=== PATIENT | male | born 1945 | race Caucasian/White ===

== ENCOUNTER 2016-07-24 16:22 | Emergency (ER) | payer OTHER ==
[2016-07-24] MEDS ORDERED: LIDOCAINE HCL 2% 20 ML VIAL ONE (16:48)
[2016-07-24] MEDS ORDERED: BACITRACIN 1 APP/PKT PKT TOPICAL ONE (17:15)
--- NOTE | 2016-07-24 17:17 | ER PHYSICIAN DOCUMENTATION ---
Physician Documentation [facility] Name:Nico Frederick Age:71 yrs Sex:Male :1945 Arrival Date:07/24/2016 Time:16:22 Bed1 Private MD: Baldo Bhagat Disposition: 07/24/16 17:12 Discharged to Home/Self Care. Impression: Finger Laceration. - Condition is Good. - Discharge Instructions: FINGER LACERATION - LACERATION, Hand. - Medical Reconciliation form form. - Follow up: Emergency Department; When: 1 week; Reason: Staple/Suture removal. - Problem is new. - Symptoms have improved. HPI: 07/24 17:13 This 71 yrs old Male presents to ER via Private Vehicle with complaints of jm Laceration To Hand - RIGHT PINKY. 17:13 The patient has a laceration related to: doing carpentry, from a power saw. The jm laceration(s) is(are) located on the palmar aspect of distal phalanx of right little finger. Onset: The symptom(s)/episode began/occurred just prior to arrival. Associated signs and symptoms: Pertinent negatives: deformity, numbness distal to injury. The patient has not experienced similar symptoms in the past. Pt was using a reciprocating saw. . Historical: - Allergies: Erythromycin; - Home Meds: 1. Wellbutrin Oral 2. Tramadol Oral 3. Flomax Oral 4. Ambien Oral - PMHx: OSTEOARTHRITIS; - PSHx: HIP SURGERY; KNEE SURGERY; - Tetanus: < 10 years. - Ebola Screening: : Patient negative for fever greater than or equal to 101.5 degrees Fahrenheit, and additional compatible Ebola Virus Disease symptoms. Patient denies exposure to infectious person. Patient denies travel to an Ebola-affected area in the 21 days before illness onset. No symptoms or risks identified at this time. . - Immunization history: Pneumococcal vaccine is not up to date, Flu Vaccine None. - Social history: Smoking status: Patient states was never smoker of tobacco. Patient uses alcohol only on a social basis. Patient/guardian denies using street drugs, IV drugs, marijuana. ROS: 17:14 Constitutional: Negative for fatigue, fever. jm 17:14 MS/extremity: Positive for laceration. 17:14 Skin: Positive for laceration(s). Exam: 17:16 Musculoskeletal/extremity: Extremities: grossly normal except: noted in the : jm laceration, ROM: intact in all extremities, Circulation is intact in all extremities. Sensation intact. 17:16 Constitutional: The patient appears alert, awake. 17:16 Skin: injury, laceration(s), the wound is approximately 2.5 cm(s), with a depth of .5 cm(s), of the palmar aspect of distal phalanx of right little finger, that can be described as jagged, no rash present. Vital Signs: 16:38 BP 142 / 81; Pulse 65; Resp 16; Temp 98.4; Pulse Ox 95% on R/A; sc1 Laceration: 17:16 Wound Repair of 2.5cm ( 1.0in ) subcutaneous laceration to palmar aspect of distal jm phalanx of right little finger. no nail involvment, but I needed to use the nail to suture down the skin. . Distal neuro/vascular/tendon intact. Anesthesia: Digital block administered with 10 mls of 2% lidocaine. Wound prep: Wound irrigation by nurse. Skin closed with 6 5-0 Ethilon using Interrupted sutures. Dressed with tube gauze. Patient tolerated well. MDM: 16:27 Patient medically screened. 17:21 Differential diagnosis: superficial laceration. Data reviewed: vital signs, nurses hortencia notes, and as a result, I will discharge patient. Counseling: I had a detailed discussion with the patient and/or guardian regarding: the historical points, exam findings, and any diagnostic results supporting the discharge/admit diagnosis. Dispensed Medications: No medications were administered Signatures: Laurie Salcedo RN RN sc1 Baldo Houston MD MD jm
--- NOTE | 2016-07-24 17:17 | ER NURSING DOCUMENTATION ---
Nurse's Notes [facility] Name:Nico Frederick Age:71 yrs Sex:Male :1945 Arrival Date:07/24/2016 Time:16:22 Bed1 Private MD: Diagnosis:Finger Laceration Presentation: 07/24 16:34 Presenting complaint: Patient states: avulsion laceration to right 5th finger on a sc1 power saw. Transition of care: Home. Complicating Factors: There are no complicating factors for this patient. Notified ED Physician of patient's arrival and CC Celso Huang notified. 16:34 Acuity: PONCHO 3 sc1 16:34 Method Of Arrival: Private Vehicle sc1 Triage Assessment: 16:38 General: Appears in no apparent distress, well developed, well nourished, well groomed, sc1 Behavior is cooperative, pleasant. Pain: Complains of pain in palmar aspect of distal phalanx of right little finger and right little fingernail. Historical: - Allergies: Erythromycin; - Home Meds: 1. Wellbutrin Oral 2. Tramadol Oral 3. Flomax Oral 4. Ambien Oral - PMHx: OSTEOARTHRITIS; - PSHx: HIP SURGERY; KNEE SURGERY; - Tetanus: < 10 years. - Ebola Screening: : Patient negative for fever greater than or equal to 101.5 degrees Fahrenheit, and additional compatible Ebola Virus Disease symptoms. Patient denies exposure to infectious person. Patient denies travel to an Ebola-affected area in the 21 days before illness onset. No symptoms or risks identified at this time. . - Immunization history: Pneumococcal vaccine is not up to date, Flu Vaccine None. - Social history: Smoking status: Patient states was never smoker of tobacco. Patient uses alcohol only on a social basis. Patient/guardian denies using street drugs, IV drugs, marijuana. Screenin:39 Infectious Disease Risk None. Abuse screen: Denies threats or abuse. Nutritional sc1 screening: No deficits noted. Assessment: 17:07 Musculoskeletal: Circulation, motion, and sensation intact Capillary refill other R lp pinky laceration. Injury Description: Laceration sustained to dorsal aspect of distal phalanx of right little finger, dorsal aspect of middle phalanx of right little finger, dorsal aspect of proximal phalanx of right little finger and right little fingernail is bleeding moderately, cut from reciprocating saw. Vital Signs: 16:38 BP 142 / 81; Pulse 65; Resp 16; Temp 98.4; Pulse Ox 95% on R/A; sd1 ED Course: 16:27 Patient arrived in ED. nikia 16:27 Baldo Houston MD is Attending Physician. hortencia 16:33 Laurie Salcedo, RN is Primary Nurse. [facility] [place] [facility] [place] Notified ED Physician of patient's arrival and chief complaint. Dr. Houston notified. sd1 Allergy Band Placed Arm band placed on Bed in low position Call Light in Reach HOB Elevated. 16:39 Wound care to laceration located on palmar aspect of distal phalanx of right little sc1 finger and right little fingernail was cleaned with Hibiclens, Patient tolerated well. 16:54 Assist Provider Assist provider with laceration repair on palmar aspect of distal sc1 phalanx of right little finger that was 2.5 cm. or less using sutures. Set up tray. Performed by Baldo Houston MD Dressed with tubegauze Patient tolerated well. 17:09 Valuables Remains with patient Patient has correct armband on for positive lp identification. Bed in low position. Call light in reach. Administered Medications: No medications were administered Outcome: 17:12 Discharge ordered by . hortencia 17:16 [place]charged to [place] [facility] [place] Condition: stable 17:16 Discharge instructions given to patient, Instructed on wound care, Demonstrated understanding of instructions. 17:16 Patient left the ED. [facility] [place] 07/25 11:05 Discharge F/U Call: Unable to reach: no answer lp Signatures: Laurie Salcedo, RN RN [facility] [place] Miguelina Krishnan RN RN lp Meyer, John, MD MD jm Lietz, Jeff
== END 2016-07-24 17:17 | disposition home or self-care (01) ==
LOC: EDBD 16:22 → ER 16:22
DX: S61.216A Laceration without foreign body of right little finger without damage to nail, initial encounter (principal); W31.2XXA Contact with powered woodworking and forming machines, initial encounter; Y93.D3 Activity, furniture building and finishing; Z79.899 Other long term (current) drug therapy
CPT/HCPCS: 12041; 99283

== ENCOUNTER 2016-08-03 14:56 | Emergency (ER) | payer OTHER ==
--- NOTE | 2016-08-03 15:09 | ER NURSING DOCUMENTATION ---
Nurse's Notes [facility] Name:Nico Frederick Age:71 yrs Sex:Male :1945 Arrival Date:08/03/2016 Time:14:56 Bed1 Private MD: Diagnosis:Suture Removal Presentation: 08/03 15:05 Presenting complaint: Patient states: pt is here for suture removal from right pinky. st Transition of care: Home. 15:05 Method Of Arrival: Private Vehicle st 15:05 Acuity: PONCHO 5 st Vital Signs: 15:06 BP 170 / 88; Pulse 88; Temp 98.2; Pulse Ox 91% on R/A; Pain 0/10; st ED Course: 15:05 Patient arrived in ED. nikia 15:05 Maribell Casarez RN is Primary Nurse. st 15:[address] 15:06 Removed sutures from dorsal aspect of distal phalanx of right little finger Suture site st is finger moist from consistent band aid application. wound is well healed with no signs of infection. Administered Medications: No medications were administered Outcome: 15:07 Discharged to home ambulatory. st 15:07 Condition: improved 15:07 Discharge instructions given to patient, Instructed on wound care. 15:08 Discharge ordered by MD. st 15:08 Patient left the ED. st 15:08 No charge visit due to suture removal. st Signatures: Maribell aCsarez RN RN st Lietz, Jeff jl
== END 2016-08-03 15:08 | disposition home or self-care (01) ==
LOC: ER 14:56
DX: Z48.02 Encounter for removal of sutures (principal); S61.216D Laceration without foreign body of right little finger without damage to nail, subsequent encounter